=== PATIENT | male | born 1995 | race African-American/Black ===

== ENCOUNTER 2016-08-12 01:22 | Emergency (ER) | payer MEDICAID ==
[2016-08-12] MEDS ORDERED: ONDANSETRON 4 MG TAB.RAPDIS PO ONE (04:47)
[2016-08-12] MEDS ORDERED: FAMOTIDINE 20 MG TABLET PO ONE (04:47)
[2016-08-12] MEDS ORDERED: SUCRALFATE 1 GM TABLET PO ONE (04:47)
--- NOTE | 2016-08-12 04:49 | ER Document Report ---
ED GI/ - General Chief Complaint: Abdominal Pain Stated Complaint: ABDOMINAL PAIN Time seen by provider: 04:45 Notes: Patient is a 20-year-old male that comes emergency department for chief complaint of abdominal pain, he points to the epigastric area, he states he has a burning sensation when he is hungry and if he eats he gets nauseated. He denies vomiting. He denies fever, he denies flank pain, he denies chest pain. He states he takes no [id number] medications and he has tried nothing for this. He denies any surgeries or medical history. He denies any alcohol or recreational drugs. TRAVEL OUTSIDE OF THE [place] IN LAST 30 DAYS: No - Related Data Allergies/Adverse Reactions: No Known Allergies Allergy (Verified 07/22/13 13:18) Past Medical History - General Information source: Patient - Social History Smoking Status: Never Smoker Chew tobacco use (# tins/day): No Frequency of alcohol use: None Drug Abuse: None Lives with: Family Family History: Reviewed & Not Pertinent Patient has suicidal ideation: No Patient has homicidal ideation: No Renal/ Medical History: Denies: Hx Peritoneal Dialysis Psychiatric Medical History: Reports: Hx Anxiety, Hx Attention Deficit Hyperactivity Disorder Surgical Hx: Negative - Immunizations Immunizations up to date: Yes Hx Diphtheria, Pertussis, Tetanus Vaccination: Yes Review of Systems - Review of Systems Constitutional: No symptoms reported EENT: No symptoms reported Cardiovascular: No symptoms reported Respiratory: No symptoms reported Gastrointestinal: See HPI Genitourinary: No symptoms reported Male Genitourinary: No symptoms reported Musculoskeletal: No symptoms reported Skin: No symptoms reported Hematologic/Lymphatic: No symptoms reported Neurological/Psychological: No symptoms reported Physical Exam - Vital signs Vitals: Temp Pulse Resp BP Pulse Ox 98.0 F 55 L 17 125/71 98 08/12/16 01:33 08/12/16 01:33 08/12/16 01:33 08/12/16 01:33 08/12/16 01:33 Interpretation: Normal - General General appearance: Appears well, Alert In distress: None - HEENT Head: Normocephalic, Atraumatic Eyes: Normal Eyelashes: Normal Pupils: PERRL Mucous membranes: Normal Pharynx: Normal Neck: Normal - Respiratory Respiratory status: No respiratory distress Chest status: Nontender Breath sounds: Normal Chest palpation: Normal - Cardiovascular Rhythm: Regular, Bradycardia. No: Tachycardia Heart sounds: Normal auscultation, S1 appreciated, S2 appreciated Murmur: No - Abdominal Inspection: Normal Distension: No distension Bowel sounds: Normal Tenderness: Tender - Patient has some epigastric and left upper quadrant tenderness on examination, otherwise soft and benign abdomen Organomegaly: No organomegaly - Back Back: Normal, Nontender - Extremities General upper extremity: Normal inspection, Nontender, Normal color, Normal ROM , Normal temperature General lower extremity: Normal inspection, Nontender, Normal color, Normal ROM , Normal temperature, Normal weight bearing. No: Malorie's sign - Neurological Neuro grossly intact: Yes Cognition: Normal Orientation: AAOx4 Anibal Coma Scale Eye Opening: Spontaneous [place] Coma Scale Verbal: Oriented [place] Coma Scale Motor: Obeys Commands Anibal Coma Scale Total: 15 Speech: Normal Motor strength normal: LUE, RUE, LLE, RLE Sensory: Normal - Psychological Associated symptoms: Normal affect, Normal mood - Skin Skin Temperature: Warm Skin Moisture: Dry Skin Color: Normal Course - Re-evaluation Re-evalutation: Patient with some epigastric and left upper quadrant pain on exam, after Carafate, Pepcid, Zofran symptoms significantly improved, patient states he feels much better. Lipase, chemistry, CBC unremarkable. Low suspicion of gallbladder pathology in young male who is skinny. Patient denies family history of the same. Uncertain why patient has gastritis, however this was discussed in detail, discussed treatments, discussed primary care follow-up, discussed return precautions. Patient states understanding and agreement. - Vital Signs Vital signs: Temp Pulse Resp BP Pulse Ox 97.7 F 54 L 16 118/72 99 08/12/16 05:51 08/12/16 05:51 08/12/16 05:51 08/12/16 05:51 08/12/16 05:51 - Laboratory Result Diagrams: 08/12/16 04:47 08/12/16 04:47 Discharge - Discharge Clinical Impression: Epigastric pain Condition: Stable Disposition: HOME, SELF-CARE Additional Instructions: Take the medications as prescribed. Examination is consistent with gastritis/esophagitis, avoid NSAIDs, avoid alcohol, avoid smoking, avoid high levels of caffeine, avoid spicy food, at least until symptoms are gone. Follow-up with primary care for additional management. Return the emergency department for any concerning or worsening symptoms including vomiting blood, black stools, severe abdominal pain, or any other concerning symptoms. Prescriptions: Omeprazole 40 mg PO DAILY #30 capsule. Sucralfate [Carafate 1 gm Tablet] 1 gm PO QID #40 tablet Referrals: JOHNY SOLER MD [Primary Care Provider] - Follow up as needed
[2016-08-12 05:16] LABS: APPEARANCE,URINE CLEAR; BILIRUBIN,URINE NEGATIVE (NEGATIVE); GLUCOSE, URINE NEGATIVE (NEGATIVE); KETONES,URINE NEGATIVE (NEGATIVE); LEUKOCYTE ESTERASE,URINE NEGATIVE (NEGATIVE); NITRITE,URINE NEGATIVE (NEGATIVE); PROTEIN,URINE NEGATIVE (NEGATIVE); URINE SPECIFIC GRAVITY 1.023; UROBILINOGEN,URINE NEGATIVE mg/dL (<2.0)
[2016-08-12 05:18] LABS: ABSOLUTE BASOPHILS # (AUTO) 0.1 10^3/uL (0.0-0.2); ABSOLUTE EOSINOPHILS # (AUTO) 0.2 10^3/uL (0.0-0.6); ABSOLUTE LYMPHOCYTES (AUTO) 2.8 10^3/uL (0.5-4.7); ABSOLUTE MONOCYTES (AUTO) 0.9 10^3/uL (0.1-1.4); BASOPHILS % (AUTO) 0.7 % (0-2); EOSINOPHILS % (AUTO) 1.6 % (0-6); HEMATOCRIT 43.1 % (37.9-51.0); HEMOGLOBIN 14.6 g/dL (13.5-17.0); HGB HCT DIFFERENCE 0.7; LYMPHOCYTES % (AUTO) 28.1 % (13-45); MEAN CORPUSCULAR HEMOGLOBIN 30.2 pg (27.0-33.4); MEAN CORPUSCULAR HGB CONC 33.9 g/dL (32.0-36.0); MEAN CORPUSCULAR VOLUME 89 fl (80-97); MONOCYTES % (AUTO) 9.1 % (3-13); RED BLOOD COUNT 4.84 10^6/uL (4.35-5.55); RED CELL DISTRIBUTION WIDTH 12.5 % (11.5-14.0); SEGMENTED NEUTROPHILS % (AUTO) 60.5 % (42-78); WHITE BLOOD COUNT 9.9 10^3/uL (4.0-10.5)
[2016-08-12 05:28] LABS: ALANINE AMINOTRANSFERASE 20 U/L (10-40); ALBUMIN 4.6 g/dL (3.7-5.6); ALKALINE PHOSPHATASE 69 U/L (65-260); ANION GAP 12 (5-19); ASPARTATE AMINO TRANSFERASE 19 U/L (10-45); BILIRUBIN,TOTAL 0.3 mg/dL (0.2-1.3); BLOOD UREA NITROGEN 14 mg/dL (7-20); CALCIUM 10.1 mg/dL (8.4-10.2); CARBON DIOXIDE 29 mmol/L (22-30); CHLORIDE 102 mmol/L (98-107); CREATININE RESULT 0.87 mg/dL (0.52-1.25); GLUCOSE 86 mg/dL (75-110); LIPASE 61.7 U/L (23-300); SODIUM 142.8 mmol/L (137-145); TOTAL PROTEIN 7.1 g/dL (6.3-8.2)
[2016-08-12 05:52] VITALS: BP 118/72
== END 2016-08-12 05:53 | disposition home or self-care (01) ==
LOC: ER 01:22
DX: R10.13 Epigastric pain (principal); R10.9 Unspecified abdominal pain
CPT/HCPCS: 99284; 36415; 83690; 85025; 80053; 81001; J3490 ×2; S0119

== ENCOUNTER 2017-11-03 12:00 | Emergency (ER) | payer MEDICAID ==
[2017-11-03] MEDS ORDERED: IBUPROFEN 600 MG TABLET PO ONE (12:30)
--- NOTE | 2017-11-03 12:37 | ER Document Report ---
ED General - General Chief Complaint: Leg Pain Stated Complaint: LEG PAIN Time Seen by Provider: 11/03/17 12:23 Mode of Arrival: Ambulatory Information source: Patient Notes: 21-year-old male presents to ED for complaint of pain to his right mansfield after he ran into a table last night and to his left pinky after he jammed it. Patient is alert and oriented respirations regular unlabored, patient is able to walk but with pain to the right mansfield. TRAVEL OUTSIDE OF THE [place] IN LAST 30 DAYS: No - HPI Onset: Yesterday Onset/Duration: Persistent Quality of pain: Achy, Throbbing Severity: Moderate Pain Level: 3 Associated symptoms: Other - Right lower leg pain left fifth finger pain after he ran into a table and jammed his finger last night. Exacerbated by: Movement, Walking Relieved by: Denies Similar symptoms previously: No Recently seen / treated by doctor: No - Related Data Allergies/Adverse Reactions: No Known Allergies Allergy (Verified 07/22/13 13:18) Past Medical History - General Information source: Patient - Social History Smoking Status: Current Every Day Smoker Cigarette use (# per day): Yes - Black and mild Chew tobacco use (# tins/day): No Smoking Education Provided: Yes - 4 Frequency of alcohol use: Rare Drug Abuse: None Lives with: Parents Family History: Reviewed & Not Pertinent Patient has suicidal ideation: No Patient has homicidal ideation: No - Past Medical History Cardiac Medical History: Reports: None Pulmonary Medical History: Reports: None EENT Medical History: Reports: None Neurological Medical History: Reports: None Endocrine Medical History: Reports: None Renal/ Medical History: Reports: None Malignancy Medical History: Reports None GI Medical History: Reports: None Musculoskeltal Medical History: Reports Hx Musculoskeletal Trauma Skin Medical History: Reports None Psychiatric Medical History: Reports: Hx Attention Deficit Hyperactivity Disorder Traumatic Medical History: Reports: None Infectious Medical History: Reports: None Surgical Hx: Negative Past Surgical History: Reports: None - Immunizations Immunizations up to date: Yes Hx Diphtheria, Pertussis, Tetanus Vaccination: Yes Review of Systems - Review of Systems Constitutional: No symptoms reported EENT: No symptoms reported Cardiovascular: No symptoms reported Respiratory: No symptoms reported Gastrointestinal: No symptoms reported Genitourinary: No symptoms reported Male Genitourinary: No symptoms reported Musculoskeletal: Other - Pain to right tib-fib and left fifth finger after he ran into a table yesterday Skin: No symptoms reported Hematologic/Lymphatic: No symptoms reported Neurological/Psychological: No symptoms reported Physical Exam - Vital signs Vitals: Temp Pulse Resp BP Pulse Ox 98.1 F 77 20 128/79 H 98 11/03/17 12:06 11/03/17 12:06 11/03/17 12:06 11/03/17 12:06 11/03/17 12:06 Interpretation: Normal - General General appearance: Appears well, Alert - HEENT Head: Normocephalic, Atraumatic Eyes: Normal Pupils: PERRL - Respiratory Respiratory status: No respiratory distress Chest status: Nontender Breath sounds: Normal Chest palpation: Normal - Cardiovascular Rhythm: Regular Heart sounds: Normal auscultation Murmur: No - Abdominal Inspection: Normal Distension: No distension Bowel sounds: Normal Tenderness: Nontender Organomegaly: No organomegaly - Back Back: Normal, Nontender - Extremities General upper extremity: Normal inspection, Nontender, Normal color, Normal ROM , Normal temperature General lower extremity: Normal inspection, Nontender, Normal color, Normal ROM , Normal temperature, Normal weight bearing. No: Malorie's sign Hand: Tender - Fifth finger, No evidence of human bite, No evidence of FB, Swelling. No: Nail injury Calf: Tender - Right tib-fib, Abrasion, Ecchymosis - Neurological Neuro grossly intact: Yes Cognition: Normal Orientation: AAOx4 Anibal Coma Scale Eye Opening: Spontaneous [place] Coma Scale Verbal: Oriented [place] Coma Scale Motor: Obeys Commands Anibal Coma Scale Total: 15 Speech: Normal Motor strength normal: LUE, RUE, LLE, RLE Sensory: Normal - Psychological Associated symptoms: Normal affect, Normal mood - Skin Skin Temperature: Warm Skin Moisture: Dry Skin Color: Normal Course - Vital Signs Vital signs: Temp Pulse Resp BP Pulse Ox 97.5 F 69 18 135/71 H 96 11/03/17 14:18 11/03/17 14:18 11/03/17 14:18 11/03/17 14:18 11/03/17 14:18 - Diagnostic Test Radiology reviewed: Image reviewed, Reports reviewed Procedures - Immobilization Left Finger 5th digit Time completed: 14:00 Immobilizer type: Finger splint (Static) Performed by: PCT Post-Proc Neuro Vasc Exam: Normal Alignment checked and good: Yes Discharge - Discharge Clinical Impression: Contusion of right lower leg, initial encounter, fracture to left 5th finger Condition: Stable Disposition: HOME, SELF-CARE Additional Instructions: CONTUSION: Your injury has resulted in a contusion -- a crushing of the deep tissues. No injury to important structures was detected during the physician's exam. Contusions vary in the amount of pain they cause, and in the length of time required for healing. Typically, the area will become bruised, and will remain painful to touch for two or three weeks. However, most patients are back to working and playing within a few days. After the initial period of rest and cold-packs, your symptoms (together with the doctor's recommendations) will determine how rapidly you can get back to full activity. Usually this means "do what feels okay, but don't do things that hurt." If re-examination was recommended, it's important to follow up as instructed. Call the doctor or return any time if pain increases, if swelling becomes severe, if you develop numbness or weakness in an injured extremity, or if any other alarming symptoms occur. Fractured Finger There is a fracture in your finger. The bone is straight and in good position to heal. The doctor has assessed the seriousness of the fracture and has explained your treatment plan. Usually the finger will be splinted until fracture healing is complete. This is usually about three or four weeks. At that time, the injured finger may be taped to the next finger to provide a moving splint for longer protection. The first few days after the injury, the finger should be kept elevated and cold (with ice packs). This decreases the swelling and pain. You should contact the doctor or return at once if pain or swelling become severe, or if the finger becomes numb. Some degree of bruising is normal with a finger fracture. ABRASIONS: An abrasion is a scraping injury of the skin. Some scarring may result. The seriousness of an abrasion is not always obvious at first. Hidden tissue damage may be present and infection may occur despite proper care. Complete healing may take from ten days to as long as a month. The healing time depends on the depth of the abrasion, and on the amount of crushing of underlying tissues from the injury. Keep the wound and dressing clean. Do not shower or bathe the area until okayed by the doctor. If the dressing gets wet, remove it and blot the wound dry, then reapply a clean dressing. Dressings should be changed every day. Sunscreen should be used for six months after the skin is healed. If any signs of infection occur (swelling, redness, increasing tenderness, red streaks, profuse purulent drainage from the abrasion, tender lumps in the armpit or groin above the abrasion, or fever), see the doctor immediately. USE OF TYLENOL (ACETAMINOPHEN): Acetaminophen may be taken for pain relief or fever control. It's much safer than aspirin, offering a wider range of "safe" dosages. It is safe during . Some brand names are Tylenol, Panadol, Datril, Anacin 3, Tempra, and Liquiprin. Acetaminophen can be repeated every four hours. The following are maximum recommended dosages: WEIGHT Dose Drops Elixir Chewable( 80mg) (LBS.) drprs=droppers tsp=teaspoon 6 40 mg 0.4 ml (1/2) 6-11 80 mg 0.8 ml (full) tsp 1 tab 12-16 120 mg 1 1/2 drprs 3/4 tsp 1 1/2 tabs 17-23 160 mg 2 drprs 1 tsp 2 tabs 24-30 240 mg 3 drprs 1 1/2 tsp 3 tabs 30-35 320 mg 2 tsp 4 tabs 36-41 360 mg 2 1/4 tsp 4 1/2 tabs 42-47 400 mg 2 1/2 tsp 5 tabs 48-53 480 mg 3 tsp 6 tabs 54-59 520 mg 3 1/4 tsp 6 1/2 tabs 60-64 560 mg 3 1/2 tsp 7 tabs 65-70 600 mg 3 3/4 tsp 7 1/2 tabs 71-76 640 mg 4 tsp 8 tabs 77-82 720 mg 4 1/2 tsp 9 tabs 83-88 800 mg 5 tsp 10 tabs >89 pounds or adults 650 mg to 900 mg Acetaminophen can be repeated every four hours. Maximum dose not to exceed 4000 mg a day. These maximum recommended dosages are slightly higher than the dosages written on the product container, but these dosages are very safe and below the toxic dosage for acetaminophen. SPLINT PRECAUTIONS: A splint has been placed. This will protect the area while healing begins. Your problem does NOT normally require a cast. It MUST, however, be held still! Keep the splint on ALL THE TIME until instructed to remove it by the doctor. As you begin to use the area, be careful. You shouldn't do anything which causes discomfort -- you may disturb the injury even with the splint in place. After the initial period of rest and elevation, if splint does not prevent pain when you move, come back. You may require placement of a different splint , or a cast. If there is unexpected severe pain, or numbness, discoloration, or swelling beyond the splint, you should return at once. If you feel that the splint has broken or become loose, come back. ICE & ELEVATION: Apply ice packs frequently against the painful area. Many different schedules are recommended, such as "20 minutes on, 20 minutes off" or "one hour ice, two hours rest." If you need to work, you may need to go longer between ice treatments. You should plan to have the area ice packed AT LEAST one- fourth of the time. The ice should be applied over the wrap, tape, or splint, or over a layer of cloth -- not directly against the skin. Some ice bags have a built-in cloth and can be put directly on the skin. Your injured part should be elevated as much as possible over the next 48 hours. Try to keep the injury above the level of the heart. Avoid use of the injured area. Elevation and rest will decrease the swelling. USE OF [id number] IBUPROFEN: Ibuprofen (Advil, Nuprin, Medipren, Motrin IB) is a medication for fever and pain control. In addition, it has anti- inflammatory effects which may be beneficial, especially in the treatment of injuries. It's best to take ibuprofen with food. Persons with ulcer disease or allergy to aspirin should notify their physician of this before taking ibuprofen. Ibuprofen can be given every four to six hours, for a total of four doses daily. Age Pain or fever dose Antiinflammatory dose 6-8 yr 200 mg (1 tab) 200 mg (1 tab) 9-11 yr 200 mg (1 tab) 200-400 mg (1-2 tab) 11-14 yr 200-400 mg (1-2 tab) 400 mg (2 tab) 15-adult 400 mg (2 tab) 600 mg (3 tab) ORAL NARCOTIC MEDICATION: You have been given a prescription for pain control. This medication is a narcotic. It's best taken with food, as nausea can result if taken on an empty stomach. Don't operate machinery or drive within six hours of taking this medication. Do not combine this medicine with alcohol, or with any medication which can cause sedation (such as cold tablets or sleeping pills) unless you get permission from the physician. Narcotics tend to cause constipation. If possible, drink plenty of fluids and eat a diet high in fiber and fruits. Please be aware that prescription narcotics also have the potential for abuse. People become addicted to these medications because of the general sense of wellbeing that they induce. This feeling along with a significant reduction in tension, anxiety, and aggression provides a stimulating seductive quality to these drugs. Once your pain is under control, we encourage you to discard your unused narcotics. FOLLOW-UP CARE: If you have been referred to a physician for follow-up care, call the physician s office for an appointment as you were instructed or within the next two days. If you experience worsening or a significant change in your symptoms, notify the physician immediately or return to the Emergency Department at any time for re-evaluation. Prescriptions: Hydrocodone/Acetaminophen [[place] 5-325 mg Tablet] 1 tab PO Q8HP PRN #7 tablet PRN Reason: Forms: Elevated Blood Pressure, Smoking Cessation Education Referrals: JOHNY SOLER MD [Primary Care Provider] - Follow up as needed HOSSEIN HERNANDEZ MD [ACTIVE STAFF] - Follow up as needed
--- NOTE | 2017-11-03 13:22 | RADIOLOGY REPORT (SQ) ---
EXAM DESCRIPTION: FINGER LEFT COMPLETED DATE/TIME: 11/03/2017 12:54 pm REASON FOR STUDY: hit mansfield on table and jammed finger COMPARISON: None. NUMBER OF VIEWS: Three views. TECHNIQUE: AP, lateral, and oblique images acquired of the left fifth finger. LIMITATIONS: None. FINDINGS: MINERALIZATION: Normal. BONES: Acute fracture, dorsal base pinky finger distal phalanx, fracture line extends into the DIP ladi int. This is best shown on the lateral view. SOFT TISSUES: Distal 5th finger soft tissue swelling. No foreign body. OTHER: No other significant finding. IMPRESSION: Acute fracture dorsal base pinky finger distal phalanx COMMENT: SITE OF TRAUMA/COMPLAINT MARKED/STAMP COMPLETED: Yes TECHNICAL DOCUMENTATION: JOB ID: [id number] [employer]- All Rights Reserved Reading location - IP/workstation name: [email or web address]
--- NOTE | 2017-11-03 13:24 | RADIOLOGY REPORT (SQ) ---
EXAM DESCRIPTION: TIBIA FIBULA RIGHT COMPLETED DATE/TIME: 11/03/2017 12:54 pm REASON FOR STUDY: hit mansfield on table and jammed finger COMPARISON: None. NUMBER OF VIEWS: Two views. TECHNIQUE: Two radiographic images acquired of the right tibia and fibula to include the knee and an kle in at least one projection. LIMITATIONS: None. FINDINGS: MINERALIZATION: Normal. BONES: No acute fracture or dislocation. No worrisome bone lesions. SOFT TISSUES: No obvious swelling or foreign body. OTHER: No other significant finding. IMPRESSION: NEGATIVE STUDY OF THE RIGHT TIBIA AND FIBULA. NO RADIOGRAPHIC EVIDENCE OF ACUTE INJURY. TECHNICAL DOCUMENTATION: JOB ID: [id number] [employer]- All Rights Reserved Reading location - IP/workstation name: [email or web address]
[2017-11-03 14:18] VITALS: BP 135/71
== END 2017-11-03 14:18 | disposition home or self-care (01) ==
LOC: ER 12:00
PROC: 2W3KX1Z Immobilization of Left Finger using Splint (ICD-10-PCS; principal; 2017-11-03)
DX: S80.11XA Contusion of right lower leg, initial encounter (principal); S62.637A Displaced fracture of distal phalanx of left little finger, initial encounter for closed fracture; M79.604 Pain in right leg; M79.645 Pain in left finger(s); F17.210 Nicotine dependence, cigarettes, uncomplicated; W22.03XA Walked into furniture, initial encounter
CPT/HCPCS: 99406; 99283; 73140; 73590; 29130; J3490

== ENCOUNTER 2017-12-26 03:40 | Emergency (ER) | payer MEDICAID ==
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
[2017-12-26] MEDS ORDERED: IBUPROFEN 800 MG TABLET PO ONE (06:58)
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
[2017-12-26 07:14] VITALS: BP 138/82
== END 2017-12-26 07:13 | disposition home or self-care (01) ==
LOC: ER 03:40
DX: S67.193A Crushing injury of left middle finger, initial encounter (principal); S60.00XA Contusion of unspecified finger without damage to nail, initial encounter; W23.0XXA Caught, crushed, jammed, or pinched between moving objects, initial encounter; Y93.89 Activity, other specified; Y92.009 Unspecified place in unspecified non-institutional (private) residence as the place of occurrence of the external cause
CPT/HCPCS: 99283; 73130; J3490

== ENCOUNTER 2018-01-11 18:59 | Emergency (ER) | payer MEDICAID ==
[2018-01-11 19:40] VITALS: BP 117/76
[2018-01-11] MEDS ORDERED: LIDOCAINE 1% INJ-PF (10 MG/ML) 30 ML SDV INJ ONE (19:41)
[2018-01-11] MEDS ORDERED: CEFTRIAXONE INJ 250 MG VIAL IM ONE (19:41)
[2018-01-11] MEDS ORDERED: AZITHROMYCIN 250 MG TABLET PO ONE (19:41)
--- NOTE | 2018-01-11 19:43 | ER Document Report ---
HPI - HPI Patient complains to provider of: Penile discharge Onset: This morning Onset/Duration: Gradual Quality of pain: Burning Pain Level: 1 Context: Patient said he noticed some penile discharge with burning with urination that started today. Patient is concerned he may have a sexually transmitted infection. Patient denies any fever abdominal tenderness. Associated Symptoms: Other - Penile discharge. denies: Fever, Vomiting Exacerbated by: Denies Relieved by: Denies Similar symptoms previously: No Recently seen / treated by doctor: No - ROS ROS below otherwise negative: Yes Systems Reviewed and Negative: Yes All other systems reviewed and negative - CONSTITUTIONAL Constitutional: DENIES: Fever, Chills - EENT EENT: DENIES: Sore Throat - GASTROINTESTINAL Gastrointestinal: DENIES: Abdominal Pain, Nausea, Patient vomiting - URINARY Urinary: REPORTS: Dysuria - MUSCULOSKELETAL Musculoskeletal: REPORTS: Back Pain. DENIES: Extremity pain - DERM Skin Color: Normal Skin Problems: None Past Medical History - General Information source: Patient - Social History Smoking Status: Never Smoker Chew tobacco use (# tins/day): No Drug Abuse: None Occupation: Foodservice Family History: Reviewed & Not Pertinent Patient has suicidal ideation: No Patient has homicidal ideation: No Renal/ Medical History: Denies: Hx Peritoneal Dialysis Musculoskeletal Medical History: Reports Hx Musculoskeletal Trauma Psychiatric Medical History: Reports: Hx Anxiety, Hx Attention Deficit Hyperactivity Disorder Surgical Hx: Negative - Immunizations Immunizations up to date: Yes Hx Diphtheria, Pertussis, Tetanus Vaccination: Yes Vertical Provider Document - CONSTITUTIONAL Agree With Documented VS: Yes Exam Limitations: No Limitations General Appearance: WD/WN, No Apparent Distress - INFECTION CONTROL TRAVEL OUTSIDE OF THE [place] IN LAST 30 DAYS: No - HEENT HEENT: Atraumatic, Normocephalic - NECK Neck: Normal Inspection - RESPIRATORY Respiratory: Breath Sounds Normal, No Respiratory Distress - CARDIOVASCULAR Cardiovascular: Regular Rate, Regular Rhythm - GI/ABDOMEN Gastrointestinal: Abdomen Soft - REPRODUCTIVE Male Genitalia: Abnormal Inspection - Patient with white milky discharge to urethra, mild inguinal lymphadenopathy bilaterally, may be more prominent due to patient's slim build. - BACK Back: Normal Inspection - MUSCULOSKELETAL/EXTREMETIES Musculoskeletal/Extremeties: MAEW, FROM, Non-Tender - NEURO Level of Consciousness: Awake, Alert, Appropriate Motor/Sensory: No Motor Deficit - DERM Integumentary: Warm, Dry, No Rash Course - Re-evaluation Re-evalutation: 01/11/18 20:55 Patient with obvious discharge on examination, cultures are pending. Suspect patient with likely STD and treated patient prophylactically. Patient encouraged to practice safe sex with using condoms. Abdomen soft nontender. Patient nontoxic in appearance. No concern for pyelonephritis at this time. Patient does have mild back tenderness but attributes this to chronic low back pain. - Vital Signs Vital signs: Temp Pulse Resp BP Pulse Ox 98.1 F 71 18 117/76 99 01/11/18 19:33 01/11/18 19:33 01/11/18 19:33 01/11/18 19:33 01/11/18 19:33 - Laboratory Laboratory results interpreted by me: 01/11/18 20:55 Labs- Entire Visit 01/11/18 20:32 Urine Color YELLOW Urine Appearance SLIGHTLY-CLOUDY Urine pH 7.0 Ur Specific [place] 1.019 Urine Protein NEGATIVE Urine Glucose (UA) NEGATIVE Urine Ketones NEGATIVE Urine Blood NEGATIVE Urine Nitrite NEGATIVE Urine Bilirubin NEGATIVE Urine Urobilinogen NEGATIVE Ur Leukocyte Esterase MODERATE H Urine WBC (Auto) 81 Urine RBC (Auto) 3 Urine Bacteria (Auto) TRACE Urine Mucus (Auto) RARE Urine Ascorbic Acid NEGATIVE Discharge - Discharge Clinical Impression: Penile discharge Condition: Stable Disposition: HOME, SELF-CARE Instructions: Azithromycin ([facility]), Rocephin ([facility]) Additional Instructions: Return immediately for any new or worsening symptoms Followup with your primary care provider, call tomorrow to make a followup appointment Cultures are pending, we will call if you need any different treatment Refrain from any sexual intercourse for at least 5 days. Use a condom when sexually active. [facility] [NO LOCAL MD] - Follow up as needed
[2018-01-11 20:49] LABS: APPEARANCE,URINE SLIGHTLY-CLOUDY; BILIRUBIN,URINE NEGATIVE (NEGATIVE); COLOR,URINE YELLOW; GLUCOSE, URINE NEGATIVE (NEGATIVE); KETONES,URINE NEGATIVE (NEGATIVE); LEUKOCYTE ESTERASE,URINE MODERATE (NEGATIVE); NITRITE,URINE NEGATIVE (NEGATIVE); PROTEIN,URINE NEGATIVE (NEGATIVE); URINE SPECIFIC GRAVITY 1.019; UROBILINOGEN,URINE NEGATIVE mg/dL (<2.0)
[2018-01-11 22:28] LABS: CHLAM PCR DETECTED (NOT DETECT); GON PCR DETECTED (NOT DETECT)
== END 2018-01-11 21:15 | disposition home or self-care (01) ==
LOC: ER 18:59
DX: R36.9 Urethral discharge, unspecified (principal); R30.0 Dysuria; R59.0 Localized enlarged lymph nodes; M54.5 Low back pain; G89.29 Other chronic pain
CPT/HCPCS: 99283; 96372; 87086; 81001; 87491; 87591; Q0144; J3490; J0696

== ENCOUNTER 2018-06-15 16:08 | Emergency (ER) | payer MEDICAID ==
[2018-06-15] MEDS ORDERED: ONDANSETRON 4 MG TAB.RAPDIS PO ONE (16:48)
--- NOTE | 2018-06-15 16:49 | ER Document Report ---
ED Medical Screen (RME) - General Chief Complaint: Nausea/Vomiting/Diarrhea Stated Complaint: VOMITING, DIARRHEA Time Seen by Provider: 06/15/18 16:45 Notes: 22-year-old male patient reports onset yesterday morning of nausea vomiting diarrhea. He is unable to keep food down. He is quite nauseous now. He also has a headache and feels weak. There is been no cough, there has been some sneezing. I have greeted and performed a rapid initial assessment of this patient. A comprehensive ED assessment and evaluation of the patient, analysis of test results and completion of the medical decision making process will be conducted by additional ED providers. TRAVEL OUTSIDE OF THE [place] IN LAST 30 DAYS: No - Related Data Allergies/Adverse Reactions: No Known Allergies Allergy (Verified 07/22/13 13:18) Past Medical History - Social History Chew tobacco use (# tins/day): No Frequency of alcohol use: None Drug Abuse: None Renal/ Medical History: Denies: Hx Peritoneal Dialysis Musculoskeltal Medical History: Reports Hx Musculoskeletal Trauma Psychiatric Medical History: Reports: Hx Anxiety, Hx Attention Deficit Hyperactivity Disorder - Immunizations Immunizations up to date: Yes Hx Diphtheria, Pertussis, Tetanus Vaccination: Yes Physical Exam - Vital signs Vitals: Temp Pulse BP Pulse Ox 98.1 F 87 129/57 H 98 06/15/18 16:13 06/15/18 16:13 06/15/18 16:13 06/15/18 16:13 Course - Vital Signs Vital signs: Temp Pulse Resp BP Pulse Ox 98.1 F 87 129/57 H 98 06/15/18 16:13 06/15/18 16:13 06/15/18 16:13 06/15/18 16:13
[2018-06-15 17:22] LABS: ABSOLUTE BASOPHILS # (AUTO) 0.1 10^3/uL (0.0-0.2); ABSOLUTE LYMPHOCYTES (AUTO) 1.9 10^3/uL (0.5-4.7); ABSOLUTE MONOCYTES (AUTO) 0.5 10^3/uL (0.1-1.4); ABSOLUTE NEUT (AUTO) 5.4 10^3/uL (1.7-8.2); BASOPHILS % (AUTO) 0.6 % (0-2); EOSINOPHILS % (AUTO) 0.5 % (0-6); HEMATOCRIT 46.5 % (37.9-51.0); HEMOGLOBIN 16.2 g/dL (13.5-17.0); LYMPHOCYTES % (AUTO) 23.8 % (13-45); MEAN CORPUSCULAR HEMOGLOBIN 31.8 pg (27.0-33.4); MEAN CORPUSCULAR HGB CONC 34.8 g/dL (32.0-36.0); MEAN CORPUSCULAR VOLUME 91 fl (80-97); MONOCYTES % (AUTO) 6.7 % (3-13); PLATELET COUNT 255 10^3/uL (150-450); RED BLOOD COUNT 5.09 10^6/uL (4.35-5.55); RED CELL DISTRIBUTION WIDTH 12.4 % (11.5-14.0); SEGMENTED NEUTROPHILS % (AUTO) 68.4 % (42-78); TOTAL CELLS COUNTED % (AUTO) 100 %; WHITE BLOOD COUNT 7.9 10^3/uL (4.0-10.5)
[2018-06-15 17:23] LABS: APPEARANCE,URINE CLEAR; BILIRUBIN,URINE NEGATIVE (NEGATIVE); COLOR,URINE AMBER; GLUCOSE, URINE NEGATIVE (NEGATIVE); KETONES,URINE NEGATIVE (NEGATIVE); LEUKOCYTE ESTERASE,URINE NEGATIVE (NEGATIVE); NITRITE,URINE NEGATIVE (NEGATIVE); PROTEIN,URINE 30 mg/dL (NEGATIVE); URINE SPECIFIC GRAVITY 1.029
[2018-06-15 17:43] LABS: ALANINE AMINOTRANSFERASE 23 U/L (21-72); ALBUMIN 4.8 g/dL (3.5-5.0); ALKALINE PHOSPHATASE 51 U/L (38-126); ANION GAP 9 (5-19); ASPARTATE AMINO TRANSFERASE 25 U/L (17-59); BILIRUBIN,DIRECT 0.1 mg/dL (0.0-0.4); BLOOD UREA NITROGEN 16 mg/dL (7-20); CALCIUM 9.8 mg/dL (8.4-10.2); CARBON DIOXIDE 31 mmol/L (22-30); CHLORIDE 102 mmol/L (98-107); GLUCOSE 87 mg/dL (75-110); POTASSIUM 3.9 mmol/L (3.6-5.0); SODIUM 141.7 mmol/L (137-145); TOTAL PROTEIN 7.3 g/dL (6.3-8.2)
--- NOTE | 2018-06-15 19:48 | ER Document Report ---
ED General - General Chief Complaint: Nausea/Vomiting/Diarrhea Stated Complaint: VOMITING, DIARRHEA Time Seen by Provider: 06/15/18 16:45 Primary Care Provider: [facility] [Outside] - Follow up as needed TRAVEL OUTSIDE OF THE [place] IN LAST 30 DAYS: No - HPI Patient complains to provider of: Nausea vomiting Onset: Other - Healthy 22-year-old male presents for evaluation of nausea and vomiting as well as diarrhea which developed over last 2 days notes that he is got several children at home all of whom are sick and he thinks that they likely gave him this illness, does not recall specific instance of food which may have prompted this. Denies any fevers or chills, lightheadedness, chest pain, shortness of breath, does endorse diarrhea as well as episodes of vomiting and nausea associated with it. - Related Data Allergies/Adverse Reactions: No Known Allergies Allergy (Verified 07/22/13 13:18) Past Medical History - General Information source: Patient - Social History Smoking Status: Never Smoker Chew tobacco use (# tins/day): No Frequency of alcohol use: None Drug Abuse: None Family History: Reviewed & Not Pertinent Patient has suicidal ideation: No Patient has homicidal ideation: No Renal/ Medical History: Denies: Hx Peritoneal Dialysis Musculoskeletal Medical History: Reports Hx Musculoskeletal Trauma Psychiatric Medical History: Reports: Hx Anxiety, Hx Attention Deficit Hyperactivity Disorder - Immunizations Immunizations up to date: Yes Hx Diphtheria, Pertussis, Tetanus Vaccination: Yes Review of Systems - Review of Systems -: Yes All other systems reviewed and negative Physical Exam - Vital signs Vitals: Temp Pulse BP Pulse Ox 98.1 F 87 129/57 H 98 06/15/18 16:13 06/15/18 16:13 06/15/18 16:13 06/15/18 16:13 Interpretation: Normal - General General appearance: Appears well, Alert - HEENT Head: Normocephalic, Atraumatic Eyes: Normal Pupils: PERRL - Respiratory Respiratory status: No respiratory distress Chest status: Nontender Breath sounds: Normal Chest palpation: Normal - Cardiovascular Rhythm: Regular Heart sounds: Normal auscultation Murmur: No - Abdominal Inspection: Normal Distension: No distension Bowel sounds: Normal Tenderness: Nontender Organomegaly: No organomegaly - Back Back: Normal, Nontender - Extremities General upper extremity: Normal inspection, Nontender, Normal color, Normal ROM, Normal temperature General lower extremity: Normal inspection, Nontender, Normal color, Normal ROM, Normal temperature, Normal weight bearing. No: Malorie's sign - Neurological Neuro grossly intact: Yes Cognition: Normal Orientation: AAOx4 [place] Coma Scale Eye Opening: Spontaneous Anibal Coma Scale Verbal: Oriented Anibal Coma Scale Motor: Obeys Commands Anibal Coma Scale Total: 15 Speech: Normal Motor strength normal: LUE, RUE, LLE, RLE Sensory: Normal - Psychological Associated symptoms: Normal affect, Normal mood - Skin Skin Temperature: Warm Skin Moisture: Dry Skin Color: Normal Course - Re-evaluation Re-evalutation: 06/16/18 00:19 There is a well-appearing 21-year-old man who presented through triage and was given antiemetics as well as labs were drawn for his nausea and vomiting. On examination he has a benign abdominal examination, there is no tenderness in the right lower right upper quadrant to suggest cholecystitis cholelithiasis or appendicitis. His labs do not demonstrate any obvious underlying cause for his nausea and connie rrhea such as uremia or anemia. He has been able to tolerate p.o. since the administration of the Zofran through triage. He states that his nausea is essentially entirely resolved though there is a little bit left. He does not have any complicated surgical history the past or other issues to suggest another cause or more serious underlying issue which would require imaging or further investigation. We will plan for discharge with return precautions and expectant management with a course of Zofran for home use. - Vital Signs Vital signs: Temp Pulse Resp BP Pulse Ox 98.6 F 74 16 123/62 99 06/15/18 20:00 06/15/18 20:00 06/15/18 20:00 06/15/18 20:00 06/15/18 20:00 - Laboratory Result Diagrams: 06/15/18 17:00 06/15/18 17:00 Laboratory results interpreted by me: 06/15/18 06/15/18 17:00 17:00 Carbon Dioxide 31 H Urine Protein 30 H Urine Urobilinogen 4.0 H Discharge - Discharge Clinical Impression: Nausea and vomiting Qualifiers: Vomiting type: unspecified Vomiting Intractability: unspecified Qualified Code(s): R11.2 - Nausea with vomiting, unspecified Condition: Good Disposition: HOME, SELF-CARE Instructions: Antinausea Medication ([facility]), Vomiting ([facility]) Additional Instructions: You were seen today in the emergency department for your nausea and vomiting. You had evaluation including a physical exam, tests of your blood. You were given a medication to try and help with your nausea. You should use the medication prescribed you to help with her nausea as necessary. Make sure you are drinking lots of fluids to try and help with your nausea. Return in case of worsening fevers, chills, inability to eat or drink. Otherwise follow-up with your primary physician in the coming week. Your blood test did not show any obvious cause. Prescriptions: Ondansetron [Zofran Odt 4 mg Tablet] 1 - 2 tab PO Q4H PRN #15 tab.rapdis PRN Reason: For Nausea/Vomiting Forms: Parent Work Note Referrals: [facility] [Outside] - Follow up as needed
[2018-06-15 20:01] VITALS: BP 123/62
== END 2018-06-15 20:02 | disposition home or self-care (01) ==
LOC: ER 16:08
DX: R11.2 Nausea with vomiting, unspecified (principal); R19.7 Diarrhea, unspecified
CPT/HCPCS: 99284; 36415; 85025; 80053; 81001; S0119

== ENCOUNTER 2018-06-21 20:16 | Emergency (ER) | payer MEDICAID ==
--- NOTE | 2018-06-21 22:13 | ER Document Report ---
ED Medical Screen (RME) - General Chief Complaint: STD Exposure Stated Complaint: POSSIBLE STD EXPOSURE Time Seen by Provider: 06/21/18 22:12 Mode of Arrival: Ambulatory Information source: Patient Notes: 22-year-old male presents to ED for complaint of possible STD. He states he has burning pain with urination that started last night. He states he also has burning to his right eye which he has rubbed recently. Patient is alert oriented respirations regular and unlabored speaking in full sentences. He states he does have a penile discharge and is only had unprotected sex with his . Clean and dirty urine have been ordered. I have greeted and performed a rapid initial assessment of this patient. A comprehensive ED assessment and evaluation of the patient, analysis of test results and completion of medical decision making process will be conducted by an additional ED providers. TRAVEL OUTSIDE OF THE [place] IN LAST 30 DAYS: No - Related Data Allergies/Adverse Reactions: No Known Allergies Allergy (Verified 07/22/13 13:18) Past Medical History Renal/ Medical History: Denies: Hx Peritoneal Dialysis Musculoskeltal Medical History: Reports Hx Musculoskeletal Trauma Psychiatric Medical History: Reports: Hx Anxiety, Hx Attention Deficit Hyperactivity Disorder - Immunizations Immunizations up to date: Yes Hx Diphtheria, Pertussis, Tetanus Vaccination: Yes Physical Exam - Vital signs Vitals: Temp Pulse Resp BP Pulse Ox 98.5 F 64 14 133/67 H 99 06/21/18 20:52 06/21/18 20:52 06/21/18 20:52 06/21/18 20:52 06/21/18 20:52 Course - Vital Signs Vital signs: Temp Pulse Resp BP Pulse Ox 98.5 F 64 14 133/67 H 99 06/21/18 20:52 06/21/18 20:52 06/21/18 20:52 06/21/18 20:52 06/21/18 20:52
[2018-06-21 22:49] LABS: APPEARANCE,URINE CLEAR; BILIRUBIN,URINE NEGATIVE (NEGATIVE); COLOR,URINE YELLOW; GLUCOSE, URINE NEGATIVE (NEGATIVE); KETONES,URINE NEGATIVE (NEGATIVE); LEUKOCYTE ESTERASE,URINE NEGATIVE (NEGATIVE); NITRITE,URINE NEGATIVE (NEGATIVE); PROTEIN,URINE NEGATIVE (NEGATIVE); URINE SPECIFIC GRAVITY 1.015; UROBILINOGEN,URINE NEGATIVE mg/dL (<2.0)
[2018-06-22 00:14] LABS: CHLAM PCR NOT DETECTED (NOT DETECT); GON PCR NOT DETECTED (NOT DETECT)
--- NOTE | 2018-06-22 00:50 | ER Document Report ---
ED GI/ - General Chief Complaint: STD Exposure Stated Complaint: POSSIBLE STD EXPOSURE Time Seen by Provider: 06/21/18 22:12 Primary Care Provider: WAQAR RILEY DO [ACTIVE STAFF] - Follow up as needed Mode of Arrival: Ambulatory Information source: Patient Notes: 22-year-old male presented to ED for complaint of possible STD. He states he has had burning and pain with urination since last night. He states he is also got burning in his right eye which he has been rubbing frequently. He is alert oriented respirations regular and unlabored. He does state he has had a recent upper respiratory infection and has seasonal allergies. He states he has had a white discharge from his penis and is only had unprotected sex with his . Clean and dirty urines were ordered and sent both were negative for any signs of infection. TRAVEL OUTSIDE OF THE [place] IN LAST 30 DAYS: No - HPI Patient complains to provider of: Other - Pain with urination and penile burning and discharge Onset: Yesterday Timing/Duration: Gradual, Intermittent Quality of pain: Burning Severity at maximum: Moderate Severity in ED: Moderate Pain Level: 2 Location: Other - Penile Associated symptoms: Penile discharge Exacerbated by: Other - Urination Relieved by: Denies Similar symptoms previously: Yes Recently seen / treated by doctor: No - Related Data Allergies/Adverse Reactions: No Known Allergies Allergy (Verified 07/22/13 13:18) Past Medical History - General Information source: Patient - Social History Smoking Status: Never Smoker Cigarette use (# per day): No Chew tobacco use (# tins/day): No Smoking Education Provided: No Frequency of alcohol use: None Drug Abuse: None Lives with: Family Family History: Reviewed & Not Pertinent Patient has suicidal ideation: No Patient has homicidal ideation: No - Past Medical History Cardiac Medical History: Reports: None Pulmonary Medical History: Reports: None EENT Medical History: Reports: None Neurological Medical History: Reports: None Endocrine Medical History: Reports: None Renal/ Medical History: Reports: None Malignancy Medical History: Reports None GI Medical History: Reports: None Musculoskeletal Medical History: Reports Hx Musculoskeletal Trauma Psychiatric Medical History: Reports: Hx Anxiety, Hx Attention Deficit Hyperactivity Disorder Traumatic Medical History: Reports: None Infectious Medical History: Reports: None Surgical Hx: Negative Past Surgical History: Reports: None - Immunizations Immunizations up to date: Yes Hx Diphtheria, Pertussis, Tetanus Vaccination: Yes Review of Systems - Review of Systems Constitutional: No symptoms reported EENT: No symptoms reported Cardiovascular: No symptoms reported Respiratory: No symptoms reported Gastrointestinal: No symptoms reported Genitourinary: Burning Male Genitourinary: Penile discharge Musculoskeletal: No symptoms reported Skin: No symptoms reported Hematologic/Lymphatic: No symptoms reported Neurological/Psychological: No symptoms reported -: Yes All other systems reviewed and negative Physical Exam - Vital signs Vitals: Temp Pulse Resp BP Pulse Ox 98.5 F 64 14 133/67 H 99 06/21/18 20:52 06/21/18 20:52 06/21/18 20:52 06/21/18 20:52 06/21/18 20:52 Interpretation: Normal - General General appearance: Appears well, Alert - HEENT Head: Normocephalic, Atraumatic Eyes: Normal Conjunctiva: Injected. No: Purulent discharge Cornea: Normal Extraocular movements intact: Yes Pupils: PERRL Ears: Normal External canal: Normal Tympanic membrane: Normal Sinus: Normal Nasal: Swelling, Clear rhinorrhea Mouth/Lips: Normal Mucous membranes: Normal Pharynx: Normal Neck: Normal - Respiratory Respiratory status: No respiratory distress Chest status: Nontender Breath sounds: Normal Chest palpation: Normal - Cardiovascular Rhythm: Regular Heart sounds: Normal auscultation Murmur: No - Abdominal Inspection: Normal Distension: No distension Bowel sounds: Normal Tenderness: Nontender Organomegaly: No organomegaly - Genitourinary Inspection: No: Blood at meatus, Penile discharge Tenderness: Nontender Cremasteric reflex: Normal Scrotum: Normal - Back Back: Normal, Nontender - Extremities General upper extremity: Normal inspection, Nontender, Normal color, Normal ROM, Normal temperature General lower extremity: Normal inspection, Nontender, Normal color, Normal ROM, Normal temperature, Normal weight bearing. No: Malorie's sign - Neurological Neuro grossly intact: Yes Cognition: Normal Orientation: AAOx4 Anibal Coma Scale Eye Opening: Spontaneous [place] Coma Scale Verbal: Oriented Anibal Coma Scale Motor: Obeys Commands Anibal Coma Scale Total: 15 Speech: Normal Motor strength normal: LUE, RUE, LLE, RLE Sensory: Normal - Psychological Associated symptoms: Normal affect, Normal mood - Skin Skin Temperature: Warm Skin Moisture: Dry Skin Color: Normal Course - Re-evaluation Re-evalutation: 06/22/18 02:05 Results of urine and GC were discussed with patient. Patient was not treated as his test were all negative. Patient was instructed to follow-up with primary care doctor for any continued symptoms. Patient was encouraged to increase her fluid intake and have no unprotected sex. Patient was treated with Polytrim to the right eye for slight redness and stated he had drainage earlier there was no drainage at this time no matting at this time. Visual acuity was completed and recorded. Patient was instructed to follow-up with ophthalmology for his conjunctivitis. Patient was also instructed to please stop rubbing his eye. Patient verbalized understanding and agreement with treatment plan. - Vital Signs Vital signs: Temp Pulse Resp BP Pulse Ox 98.3 F 72 18 134/70 H 99 06/22/18 01:29 06/22/18 01:29 06/22/18 01:29 06/22/18 01:29 06/22/18 01:29 Discharge - Discharge Clinical Impression: Pain with urination, Acute allergic conjunctivitis of right eye Condition: Stable Disposition: HOME, SELF-CARE Instructions: Family Physicians / Practices Additional Instructions: CONJUNCTIVITIS: You have an infection in your eye, commonly known as "pink eye." Conjunctivitis causes redness, mild discomfort, itching, and mattering on the eyelids. It is very contagious, so you must be careful to wash your hands after touching your face so you don't pass the infection on to others. Conjunctivitis is caused by both viruses and bacteria. It usually responds quickly to treatment with antibiotic drops. These should be placed in the eye as prescribed (usually every three to four hours while you're awake). If you wear contact lenses, don't put them in your eyes until the infection is cleared and you are no longer using the drops (unless your doctor advises you otherwise). Should you develop increasing eye pain, severe swelling, decreased vision, or fail to improve as expected, please return for re-examination. You also complained of painful urination. Your gonorrhea and Chlamydia test was negative. Your UA was negative. A culture was sent on the urine and you will be called if anything grows in the culture. EYEDROP USE: Eyedrops are most easily applied by pulling down on the cheek just below the lower eyelid. The lower lid will pop out to form a pouch into which you can drop the medicine. A small brief sting is not unusual, especially if the eye is reddened and irritated already. Use the drops exactly as recommended. You should see the doctor at once if there is a decrease in vision, swelling of the eye, or an increase in discomfort. ANTIBIOTIC THERAPY: You have been given an antibiotic prescription. It's important that you take all the medication, unless instructed otherwise by your physician. Failure to complete the entire course can result in relapse of your condition. Common side effects of antibiotics include nausea, intestinal cramping, or diarrhea. Women may develop vaginal yeast infections, and babies can get yeast (thrush) in the mouth following the use of antibiotics. Contact your physician if you develop significant side effects from this medication. Allergy to this antibiotic can result in hives, wheezing, faintness, or itching. If symptoms of allergy occur, stop the medication and call the doctor. FOLLOW-UP CARE: If you have been referred to a physician for follow-up care, call the physicians office for an appointment as you were instructed or within the next two days. If you experience worsening or a significant change in your symptoms, notify the physician immediately or return to the Emergency Department at any time for re-evaluation. Referrals: WAQAR RILEY, [ACTIVE STAFF] - Follow up as needed
[2018-06-22] MEDS ORDERED: POLYMYXIN B SULFATE/TMP OPH SOLN (10 ML/ER DISP) OD SCH (01:00)
[2018-06-22 01:30] VITALS: BP 134/70
== END 2018-06-22 01:20 | disposition home or self-care (01) ==
LOC: ER 20:16
DX: R30.0 Dysuria (principal); H10.11 Acute atopic conjunctivitis, right eye
CPT/HCPCS: 99283; 87086; 81001; 87491; 87591; J3490

== ENCOUNTER 2018-10-31 21:42 | Emergency (ER) | payer OTHER, MEDICAID ==
[2018-11-01] MEDS ORDERED: ACETAMINOPHEN 325 MG TABLET PO ONE (00:09)
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
[2018-11-01 03:43] VITALS: BP 137/78
== END 2018-11-01 01:37 | disposition home or self-care (01) ==
LOC: ER 21:42
DX: S29.012A Strain of muscle and tendon of back wall of thorax, initial encounter (principal); S46.819A Strain of other muscles, fascia and tendons at shoulder and upper arm level, unspecified arm, initial encounter; M54.9 Dorsalgia, unspecified; V87.7XXA Person injured in collision between other specified motor vehicles (traffic), initial encounter
CPT/HCPCS: 72070; 99283

== ENCOUNTER 2019-05-28 22:34 | Emergency (ER) | payer SELFPAY ==
[2019-05-28 23:10] VITALS: BP 117/62
[2019-05-28] MEDS ORDERED: METRONIDAZOLE 500 MG TABLET PO ONE (23:13)
--- NOTE | 2019-05-28 23:15 | ER Document Report ---
ED Medical Screen (RME) - General Chief Complaint: STD Exposure Stated Complaint: POSSIBLE UTI,STD TESTING Time Seen by Provider: 05/28/19 23:07 Notes: Patient is a 23-year-old male who presents to the emergency department with a chief complaint of STD exposure. Patient reports he was recently exposed to trichomonas. Patient reports he is having some itching and discomfort to the top of his penis. Patient reports the exposure was around May 19. Patient reports he does have from pressure with urination. Patient denies fever. Patient denies penile discharge. Patient also reports having a nonproductive cough. Patient reports he does have family members who have similar symptoms in regards to the cough. TRAVEL OUTSIDE OF THE [place] IN LAST 30 DAYS: No - Related Data Allergies/Adverse Reactions: No Known Allergies Allergy (Verified 07/22/13 13:18) Past Medical History - Social History Chew tobacco use (# tins/day): No Frequency of alcohol use: None Drug Abuse: None Renal/ Medical History: Denies: Hx Peritoneal Dialysis Musculoskeltal Medical History: Reports Hx Musculoskeletal Trauma Psychiatric Medical History: Reports: Hx Anxiety, Hx Attention Deficit H yperactivity Disorder - Immunizations Immunizations up to date: Yes Hx Diphtheria, Pertussis, Tetanus Vaccination: Yes Physical Exam - Vital signs Vitals: Temp Pulse Resp BP Pulse Ox 98.3 F 92 17 117/62 96 05/28/19 23:01 05/28/19 23:01 05/28/19 23:01 05/28/19 23:01 05/28/19 23:01 Course - Re-evaluation Re-evalutation: 05/28/19 23:15 We will prophylactically treat for trichomonas. We will also tested for gonorrhea and chlamydia. Urinalysis obtained to rule out urinary tract infection. I have greeted and performed a rapid initial assessment of this patient. A comprehensive ED assessment and evaluation of the patient, analysis of test results and completion of the medical decision making process will be conducted by additional ED providers. - Vital Signs Vital signs: Temp Pulse Resp BP Pulse Ox 98.3 F 92 17 117/62 96 05/28/19 23:01 05/28/19 23:01 05/28/19 23:01 05/28/19 23:01 05/28/19 23:01
[2019-05-29 00:09] LABS: APPEARANCE,URINE CLEAR; BILIRUBIN,URINE NEGATIVE (NEGATIVE); COLOR,URINE YELLOW; GLUCOSE, URINE NEGATIVE (NEGATIVE); KETONES,URINE NEGATIVE (NEGATIVE); LEUKOCYTE ESTERASE,URINE NEGATIVE (NEGATIVE); NITRITE,URINE NEGATIVE (NEGATIVE); PROTEIN,URINE NEGATIVE (NEGATIVE); URINE SPECIFIC GRAVITY 1.023
[2019-05-29 01:35] LABS: CHLAM PCR NOT DETECTED (NOT DETECT)
--- NOTE | 2019-05-29 02:17 | ER Document Report ---
HPI - HPI Time Seen by Provider: 05/28/19 23:07 Pain Level: Denies Context: Patient is a 23-year-old male that comes emergency department for chief complaint of an STD exposure. He states that he was told by his significant other that she tested positive for trichomonas. He states he has an occasional discomfort to the head of the penis but currently has no symptoms, he denies discharge, he denies abdominal pain, swelling in the groin, or painful urination. The exposure was approximately May 19. Patient denies any other symptoms at this time. He denies any other complaints. He states he took 2000 mg of Flagyl from triage. - REPRODUCTIVE Reproductive: DENIES: : Past Medical History - General Information source: Patient - Social History Smoking Status: Current Some Day Smoker Chew tobacco use (# tins/day): No Frequency of alcohol use: None Drug Abuse: None Lives with: Family Family History: Reviewed & Not Pertinent Patient has suicidal ideation: No Patient has homicidal ideation: No Renal/ Medical History: Denies: Hx Peritoneal Dialysis Musculoskeletal Medical History: Reports Hx Musculoskeletal Trauma Psychiatric Medical History: Reports: Hx Anxiety, Hx Attention Deficit Hyperactivity Disorder - Immunizations Immunizations up to date: Yes Hx Diphtheria, Pertussis, Tetanus Vaccination: Yes Vertical Provider Document - CONSTITUTIONAL General Appearance: WD/WN, No Apparent Distress - INFECTION CONTROL TRAVEL OUTSIDE OF THE [place] IN LAST 30 DAYS: No - HEENT HEENT: Atraumatic, Normal ENT Exam, Normocephalic - NECK Neck: Normal Inspection - RESPIRATORY Respiratory: Breath Sounds Normal, No Respiratory Distress - CARDIOVASCULAR Cardiovascular: Regular Rate, Regular Rhythm - GI/ABDOMEN Gastrointestinal: Abdomen Soft, Abdomen Non-Tender - REPRODUCTIVE Male Genitalia: Normal Inspection - No tenderness, swelling, discharge, rashes, lymphadenopathy noted. Exam performed with Monica RN at bedside - BACK Back: Normal Inspection - MUSCULOSKELETAL/EXTREMETIES Musculoskeletal/Extremeties: MAEW, FROM, Non-Tender - NEURO Level of Consciousness: Awake, Alert, Appropriate Motor/Sensory: No Motor Deficit, No Sensory Deficit - DERM Integumentary: Warm, Dry, No Rash Course - Re-evaluation Re-evalutation: Patient with no concerning findings of the external genitalia, no current symptoms, negative gonorrhea and chlamydia, nonspecific urine. Patient has already been treated for trichomonas. Discussed instructions, follow-up, return precautions. Patient states understanding and agreement. - Vital Signs Vital signs: Temp Pulse Resp BP Pulse Ox 98.3 F 92 17 117/62 96 05/28/19 23:01 05/28/19 23:01 05/28/19 23:01 05/28/19 23:01 05/28/19 23:01 - Laboratory Laboratory results interpreted by me: 05/28/19 23:33 Urine Blood SMALL H Urine Urobilinogen 2.0 H Discharge - Discharge Clinical Impression: STD exposure Condition: Stable Disposition: HOME, SELF-CARE Additional Instructions: You have been treated for your exposure. Your remaining tests are normal. Your exam does not show any concerning findings. Avoid sexual intercourse for 1 week. Follow-up with primary care. Return for any concerning symptoms including fever, severe abdominal pain, or any other concerning symptoms.
== END 2019-05-29 02:23 | disposition home or self-care (01) ==
LOC: ER 22:34
DX: Z20.2 Contact with and (suspected) exposure to infections with a predominantly sexual mode of transmission (principal); F17.200 Nicotine dependence, unspecified, uncomplicated
CPT/HCPCS: 81001; 87491; 87591; 99283

== ENCOUNTER 2019-06-10 23:38 | Emergency (ER) | payer SELFPAY ==
--- NOTE | 2019-06-11 01:28 | ER Document Report ---
HPI - HPI Time Seen by Provider: 06/11/19 01:04 Pain Level: 3 Context: Patient is a 23-year-old male that comes to the emergency department for chief complaint of dysuria, penile discharge. This started over the past day or so. Patient states that he recently was treated for trichomonas after he had been exposed and he had also been medicated otherwise at that time. He states he was not having intercourse for a week and has not changed partners. He states that he is hoping to stay until the test results are back this time because he needs to "get this figured out". He denies abdominal pain, fever, vomiting, or any other complaints. He denies any past medical history. - GASTROINTESTINAL Gastrointestinal: REPORTS: Abdominal Pain - lower mid abd - URINARY Urinary: REPORTS: Dysuria, Frequency - REPRODUCTIVE Reproductive: REPORTS: Abnormal bleeding / discharge. DENIES: : Past Medical History - General Information source: Patient - Social History Smoking Status: Current Some Day Smoker Frequency of alcohol use: None Drug Abuse: None Lives with: Family Family History: Reviewed & Not Pertinent Patient has suicidal ideation: No Patient has homicidal ideation: No Renal/ Medical History: Denies: Hx Peritoneal Dialysis Musculoskeletal Medical History: Reports Hx Musculoskeletal Trauma Psychiatric Medical History: Reports: Hx Anxiety, Hx Attention Deficit Hyperactivity Disorder - Immunizations Immunizations up to date: Yes Hx Diphtheria, Pertussis, Tetanus Vaccination: Yes Vertical Provider Document - CONSTITUTIONAL General Appearance: WD/WN, No Apparent Distress - INFECTION CONTROL TRAVEL OUTSIDE OF THE [place] IN LAST 30 DAYS: No - HEENT HEENT: Atraumatic, Normocephalic - NECK Neck: Normal Inspection - RESPIRATORY Respiratory: Breath Sounds Normal, No Respiratory Distress - CARDIOVASCULAR Cardiovascular: Regular Rate, Regular Rhythm - GI/ABDOMEN Gastrointestinal: Abdomen Soft, Abdomen Non-Tender - REPRODUCTIVE Male Genitalia: Normal Inspection - Normal genitalia with no rash, swelling, tenderness, erythema, abnormal heat. No obvious discharge. There is mild nearby inguinal lymphadenopathy bilaterally. Exam performed with Azalia BOLAND present - BACK Back: Normal Inspection - MUSCULOSKELETAL/EXTREMETIES Musculoskeletal/Extremeties: MAEW, FROM, Non-Tender - NEURO Level of Consciousness: Awake, Alert, Appropriate Motor/Sensory: No Motor Deficit, No Sensory Deficit - DERM Integumentary: Warm, Dry, No Rash Course - Re-evaluation Re-evalutation: Patient has very mild inguinal lymphadenopathy on exam. No rash or concerning finding over the genitals. Soft abdomen. Patient is reporting dysuria and discharge. He was treated with Rocephin and azithromycin as result, he requested to stay for his results. Results actually did show a negative gonorrhea and chlamydia. Based on his exam I still suspect urethritis, recommended that his partner also be informed/treated and he abstain from intercourse for 7 days. Discussed primary care follow-up and return precautions. Patient states appreciation and agreement. Feeling - Vital Signs Vital signs: Temp Pulse Resp BP Pulse Ox 98.3 F 73 20 115/72 97 06/11/19 00:15 06/11/19 00:15 06/11/19 00:15 06/11/19 00:15 06/11/19 00:15 Discharge - Discharge Clinical Impression: Dysuria, Discharge from genitalia Condition: Stable Disposition: HOME, SELF-CARE Additional Instructions: You have been treated for urethritis, however the gonorrhea and Chlamydia testing are negative. I still recommend you avoid intercourse for 1 week during recovery. Follow-up with primary care for additional evaluation and management. Return if you worsen including developing abdominal pain, vomiting, fever, or any other concerning or worsening symptoms.
[2019-06-11] MEDS ORDERED: AZITHROMYCIN 250 MG TABLET PO ONE (01:29)
[2019-06-11] MEDS ORDERED: CEFTRIAXONE INJ 250 MG VIAL IM ONE (01:29)
[2019-06-11 02:00] LABS: CHLAM PCR NOT DETECTED (NOT DETECT)
[2019-06-11 02:38] VITALS: BP 129/73
== END 2019-06-11 02:37 | disposition home or self-care (01) ==
LOC: ER 23:38
DX: R30.0 Dysuria (principal); R36.9 Urethral discharge, unspecified; F17.200 Nicotine dependence, unspecified, uncomplicated; F41.9 Anxiety disorder, unspecified
CPT/HCPCS: 99283; 96372; 87491; 87591; J0696

== ENCOUNTER 2019-10-31 17:38 | Emergency (ER) | payer SELFPAY ==
[2019-10-31 17:43] VITALS: BP 126/69
[2019-10-31] MEDS ORDERED: LIDOCAINE 1% INJ-PF (10 MG/ML) 30 ML SDV INJ ONE (17:54)
[2019-10-31] MEDS ORDERED: CEFTRIAXONE INJ 250 MG VIAL IM ONE (17:54)
[2019-10-31] MEDS ORDERED: AZITHROMYCIN 250 MG TABLET PO ONE (17:54)
--- NOTE | 2019-10-31 18:02 | ER Document Report ---
ED GI/ - General Chief Complaint: STD Exposure Stated Complaint: STD CHECK Time Seen by Provider: 10/31/19 17:51 Primary Care Provider: MANDY REEDER NP [NURSE PRACTITIONER] - Follow up in 3-5 days Mode of Arrival: Ambulatory Information source: Patient Notes: 23-year-old male presented to ED for treatment for gonorrhea and chlamydia. He states he went to the [facility] yesterday and was tested for STDs. He states he was called this morning told he needed to come and get treated. He states he figured it was closed after he came on over to the emergency room. I did look up the results and he was positive for gonorrhea and chlamydia. He has been treated with Rocephin 250 mg IM azithromycin thousand milligrams and he has been sent home with a prescription for doxycycline and Phenergan for the nausea. He is alert oriented respirations regular nonlabored speaking in full sentences. TRAVEL OUTSIDE OF THE [place] IN LAST 30 DAYS: No - HPI Patient complains to provider of: Other - Gonorrhea and Chlamydia states yesterday came back positive Onset: Last week Timing/Duration: Gradual Quality of pain: Burning Severity at maximum: Moderate Severity in ED: Moderate Pain Level: 2 Location: Other - Penile Sexual history: Active Associated symptoms: Other - Penile discharge Exacerbated by: Denies Relieved by: Denies Similar symptoms previously: Yes Recently seen / treated by doctor: Yes - Related Data Allergies/Adverse Reactions: No Known Allergies Allergy (Verified 10/31/19 17:48) Past Medical History - General Information source: Patient - Social History Smoking Status: Current Every Day Smoker Chew tobacco use (# tins/day): No Frequency of alcohol use: Social Drug Abuse: None Family History: Reviewed & Not Pertinent Patient has homicidal ideation: No - Past Medical History Cardiac Medical History: Reports: None Pulmonary Medical History: Reports: None EENT Medical History: Reports: None Neurological Medical History: Reports: None Endocrine Medical History: Reports: None Renal/ Medical History: Reports: None Malignancy Medical History: Reports None GI Medical History: Reports: None Musculoskeletal Medical History: Reports Hx Musculoskeletal Trauma Skin Medical History: Reports None Psychiatric Medical History: Reports: Hx Anxiety, Hx Attention Deficit Hyperactivity Disorder Traumatic Medical History: Reports: None Infectious Medical History: Reports: None Surgical Hx: Negative Past Surgical History: Reports: None - Immunizations Immunizations up to date: Yes Hx Diphtheria, Pertussis, Tetanus Vaccination: Yes Review of Systems - Review of Systems Constitutional: No symptoms reported EENT: No symptoms reported Cardiovascular: No symptoms reported Respiratory: No symptoms reported Gastrointestinal: No symptoms reported Genitourinary: No symptoms reported Male Genitourinary: Other - Seen yesterday at urgent care tested positive for gonorrhea and chlamydia we will treat today Musculoskeletal: No symptoms reported Skin: No symptoms reported Hematologic/Lymphatic: No symptoms reported Neurological/Psychological: No symptoms reported Physical Exam - Vital signs Vitals: Temp Pulse Resp BP Pulse Ox 98.8 F 79 17 126/69 H 97 10/31/19 17:42 10/31/19 17:42 10/31/19 17:42 10/31/19 17:42 10/31/19 17:42 Interpretation: Normal - General General appearance: Appears well, Alert - HEENT Head: Normocephalic, Atraumatic Eyes: Normal Pupils: PERRL - Respiratory Respiratory status: No respiratory distress Chest status: Nontender Breath sounds: Normal Chest palpation: Normal - Cardiovascular Rhythm: Regular Heart sounds: Normal auscultation Murmur: No - Abdominal Inspection: Normal Distension: No distension Bowel sounds: Normal Tenderness: Nontender Organomegaly: No organomegaly - Back Back: Normal, Nontender - Extremities General upper extremity: Normal inspection, Nontender, Normal color, Normal ROM, Normal temperature General lower extremity: Normal inspection, Nontender, Normal color, Normal ROM, Normal temperature, Normal weight bearing. No: Malorie's sign - Neurological Neuro grossly intact: Yes Cognition: Normal Orientation: AAOx4 [place] Coma Scale Eye Opening: Spontaneous [place] Coma Scale Verbal: Oriented [place] Coma Scale Motor: Obeys Commands Anibal Coma Scale Total: 15 Speech: Normal Motor strength normal: LUE, RUE, LLE, RLE Sensory: Normal - Psychological Associated symptoms: Normal affect, Normal mood - Skin Skin Temperature: Warm Skin Moisture: Dry Skin Color: Normal Course - Vital Signs Vital signs: Temp Pulse Resp BP Pulse Ox 98.8 F 79 17 126/69 H 97 10/31/19 17:48 10/31/19 17:42 10/31/19 17:42 10/31/19 17:42 10/31/19 17:42 Discharge - Discharge Clinical Impression: Gonorrhea in male, Chlamydia Condition: Stable Disposition: HOME, SELF-CARE Additional Instructions: Gonorrhea You have been diagnosed with gonorrhea. In men, this germ infects the urethra (and sometimes the throat). Men usually have drainage from the penis and pain with urination. In women, the germ infects the vagina and fallopian tubes. There may be discharge and pelvic pain. Some women have no symptoms at all. The infection can do permanent damage to the tubes and ovaries. It should be taken very seriously. Treatment is antibiotics. It's important that you receive all recommended medication. Use condoms to prevent spread of the infection. Because this infection is spread sexually, your sexual partner must be checked before resuming sexual relations. If a culture shows gonorrhea germs, it must be reported to the health department. Call the doctor or return at once if you develop increasing fever, rash, joint swelling, severe pelvic pain, vaginal bleeding (other than your period), or problems with your bladder or bowels. Chlamydia You have a chlamydia infection. Chlamydia is a germ that grows inside the cells of the mucous membranes. It often infects the eyes, urethra, and fallopian tubes. It can cause chronic pain and scar tissue if untreated. Antibiotics are used to treat chlamydia. It's important to take all the medicine even if there are no symptoms. Use condoms to prevent spread of the infection. Because this infection can spread by sexual contact, it's important that your sexual partner be checked before resuming sexual relations. A positive test for chlamydia has to be reported to the health department. Call the doctor or return at once if you develop increasing fever, rash, severe pelvic pain, vaginal bleeding (other than your period), or problems with your bladder or bowels. Azithromycin Azithromycin (Zithromax) is a broad spectrum antibiotic in the same class as erythromycin. It can treat a variety of bacterial infections, but is most frequently used for respiratory infections. Azithromycin is extremely long-lasting. It accumulates in body tissues and continues to kill bacteria for many days. In order to improve absorption, Azithromycin should be taken at least one hour before or two hours after a meal. It does not have the same strong tendency to upset the stomach as erythromycin and is usually very well tolerated. Patients who have had a rash or other true allergic reactions to erythromycin should not take this medication. Call if you develop gastrointestinal distress, severe diarrhea, rash, hives, itching, or shortness of breath. Rocephin You have been given an injection of an antibiotic called Rocephin (ceftriaxone). Sometimes the injection must be combined with antibiotic pills. For some infections, such as an uncomplicated ear infection, Rocephin provides all the antibiotic that's needed. The antibiotic will be in your body for about two days. For serious infections, we usually repeat doses of Rocephin daily. Side effects are very unusual following a shot. Women may develop vaginal yeast infections, and babies can get yeast (thrush) in the mouth following the use of antibiotics. Contact your physician if you have symptoms with this medication. Allergy to this antibiotic can result in hives, wheezing, faintness, or itching. If symptoms of allergy occur, call the doctor at once. Antinausea Medication You have been given a medication to suppress nausea and vomiting. This type of medication can be given as a shot, pill, or suppository. It will usually last for many hours. Pills and shots usually last six to eight hours, suppositories last about 12 hours. For the typical illness, only one or two doses of the medication may be necessary. Mild lightheadedness may occur. This type of medicine can cause drowsiness. Do not drive or operate dangerous machinery while under its influence. Do not mix with alcohol. See your doctor at once if you have muscle spasms or tightness, or uncontrollable motions (particularly of the neck, mouth, or jaw). Persistent vomiting or severe lightheadedness should also be evaluated by the physician. Doxycycline Doxycycline (Vibramycin, Doryx) is an antibiotic of the tetracycline family. This type of drug is useful for infections of the respiratory tract and genital tract, and is sometimes used for intestinal infections. Unlike most tetracyclines, doxycycline can be taken with food. It is longer acting, and (usually) less prone to side effects than regular tetracycline. Tetracycline antibiotics can stain immature teeth and SHOULD NOT BE TAKEN BY CHILDREN, NURSING MOTHERS, OR WOMEN. Tetracyclines can make you more prone to sunburn. Abdominal cramping, nausea, and diarrhea are occasional side effects. Women may experience vaginal yeast infections. Call the doctor at once if you develop hives, itching, shortness of breath, or lightheadedness. Prescriptions: Promethazine HCl [Phenergan 25 mg Tablet] 25 mg PO Q6HP PRN #20 tablet PRN Reason: Doxycycline Hyclate [Vibramycin] 100 mg PO BID #20 capsule Forms: Elevated Blood Pressure Referrals: MANDY REEDER, JAY [NURSE PRACTITIONER] - Follow up in 3-5 days
== END 2019-10-31 18:41 | disposition home or self-care (01) ==
LOC: ER 17:38
DX: A54.9 Gonococcal infection, unspecified (principal); A74.9 Chlamydial infection, unspecified; F17.200 Nicotine dependence, unspecified, uncomplicated
CPT/HCPCS: 99283; 96372; J3490; J0696